=== PATIENT | male | born 1985 | race Caucasian/White ===

== ENCOUNTER → 2020-08-13 | Outpatient (CLI) | payer OTHER ==
[~2020-08-13] MED LIST: IOHEXOL 300 MG/ML 75 ML VIAL. IV ONE
--- NOTE | 2020-08-13 13:09 | RAD ---
Site ID: [id number] EXAMINATION: CT ABDOMEN+PELVIS W. Technique: Axial images with coronal and sagittal reconstructions are performed of abdomen and pelvis with intravenous contrast. 75 ml of Omnipaque 300 was administered intravenously. One or more of the following radiation dose reduction techniques was used: automated exposure control , adjustment of mA and/or KV according to patient size, and/or utilization of iterative reconstructio n technique. HISTORY: 35 years Male Reason: RUQ ABD PAIN, NAUSEA, NO APPETITE / . COMPARISON: None. FINDINGS: Sections in the lower chest to demonstrate tach calcified granulomas in the infracarinal region and t he right hilum2 and the right middle lobe. There is a noncalcified nodule in the right middle lobe me asuring 4 mm, probably also related to prior granulomatous process. Otherwise no significant nodule o r mass is seen. There is diffuse the hepatic steatosis. There is no focal liver mass. The gallbladder, spleen, pancre as, and adrenal glands appear unremarkable. The kidneys demonstrate symmetric enhancement. There is n o hydronephrosis. The abdominal aorta is normal in caliber. No para-aortic significantly enlarged lymph nodes are seen. There is no bowel obstruction. There are foci of hyperdense material in the lumen of the small bowel loops probably incidental dense ingested food or medication. No dilated bowel loops. There is no sugg estion of an underlying soft tissue mass and there are no inflammatory changes. No free fluid or flui d collection in the abdomen or pelvis. The appendix is normal. The urinary bladder appears unremarkable. The osseous structures appear grossly unremarkable. IMPRESSION: Diffuse hepatic steatosis. No acute process. Electronically signed by: Sonny Simmons MD (08/13/2020 1:06 PM) [id number]
== END ==
LOC: PMG 11:59
PROVIDERS: ATTEND Nurse Practitioner Family
DX: K76.0 Fatty (change of) liver, not elsewhere classified (principal); R11.2 Nausea with vomiting, unspecified
CPT/HCPCS: 74177; Q9967

== ENCOUNTER → 2020-08-23 | Outpatient (CLI) | payer OTHER ==
--- NOTE | 2020-08-23 10:30 | RAD ---
EXAM: Abdomen sonogram. HISTORY: Pain. TECHNIQUE: Sonographic imaging of the abdomen was performed. COMPARISON: None. FINDINGS: The liver is normal in size. There is hepatic steatosis. No focal hepatic lesion is seen. T he gallbladder is unremarkable. The common bile duct is normal in caliber. The right kidney is unrema rkable. The aorta and inferior vena cava are obscured due to bowel gas. IMPRESSION: 1. Hepatic steatosis. 2. No acute sonographic finding. 3. Obscured midline structures due to bowel gas. Electronically signed by: Zonia Cornejo MD (08/23/2020 10:27 AM) [id number]
== END ==
LOC: US 09:44
PROVIDERS: ATTEND Family Medicine
DX: K76.0 Fatty (change of) liver, not elsewhere classified (principal)
CPT/HCPCS: 76705